=== PATIENT | male | born 1985 | race Caucasian/White ===

== ENCOUNTER → 2017-03-22 | Outpatient (CLI) | payer BC ==
--- NOTE | 2017-03-22 11:32 | ECHOS ---
STRESS ECHOCARDIOGRAM INDICATIONS: Abnormal EKG BASELINE HEART RATE: 99 BASELINE BLOOD PRESSURE: 105/55 MAXIMUM HEART RATE: 170 MAXIMUM BLOOD PRESSURE: 169/84 85% MPHR: 162 100% MPHR: 190 METS: 12.1 MAXIMUM STAGE REACHED: 4 TOTAL EXERCISE TIME: 12:00 CLINICAL INFORMATION: Baseline EKG shows sinus rhythm with nonspecific T-wave changes in the inferior leads. The patient exercised on Vladimir protocol for a total of 12 minutes achieving 13 METS, 85% of predicted maximal heart rate without chest pain or diagnostic ST-segment depression. Baseline echo shows normal left ventricular size, wall motion and systolic function. Postexercise, there is normal hyperdynamic response of all segments of myocardium noted. CONCLUSION: 1. Excellent exercise tolerance. 2. Negative stress test by EKG criteria. 3. Negative stress echo. MMMIRAL / MATIASN: [id number] /
== END | disposition home or self-care (01) ==
LOC: RADNMMAIN 09:58
PROVIDERS: ATTEND Family Medicine
DX: R94.31 Abnormal electrocardiogram [ECG] [EKG] (principal)
CPT/HCPCS: 93017; 93350

== ENCOUNTER 2021-12-09 09:14 | Day surgery (SDC) | payer BC ==
[2021-12-07 11:24] VITALS: BMI 30.2
[~2021-12-09 09:14] MED LIST: LACTATED RINGERS 1,000 ML IV SCH; LIDOCAINE 1% (10MG/ML) FOR IV START INTRADERMA PRN
[2021-12-09 10:03] VITALS: TEMP 97.3
[2021-12-09] MEDS ORDERED: PROPOFOL 10 MG/ML 20 ML VIAL IV ONE (10:58)
[2021-12-09] MEDS ORDERED: MIDAZOLAM 2 MG/2 ML VIAL ONE (10:58)
[2021-12-09] MEDS ORDERED: LIDOCAINE 2% INJ 20 MG/ML (2 ML VIAL) ONE (10:58)
[2021-12-09] MEDS ORDERED: fentaNYL (PF) 50 MCG/ML 2 ML AMP ONE (10:58)
--- NOTE | 2021-12-09 11:07 | P.PCN ---
Date of Procedure: 12/09/21 Procedure(s) Performed: BRIEF HISTORY: Patient is a 36-year-old, pleasant, male scheduled for an upper endoscopy as a part of evaluation of reflux symptoms for the last 3-4 months duration. He was initially started on Protonix 40 mg daily and is doing much better. He does complain of intermittent dysphagia to solids.. PROCEDURE PERFORMED: Esophagogastroduodenoscopy with biopsy. PREOPERATIVE DIAGNOSIS: Chronic heartburn and intermittent dysphagia to solids. IV sedation per anesthesia. PROCEDURE: After informed consent was obtained, the patient was brought into the endoscopy unit. IV sedation was administered by Anesthesia under continuous monitoring. Initially the Olympus GIF-140 video endoscope was inserted into the mouth. Esophagus intubated without any difficulty. It was gradually advanced into the stomach and duodenum and carefully examined. The bulb and the second part of the duodenum appeared normal. The scope at this time was withdrawn to the stomach, adequately insufflated with air, and upon careful examination, mucosa of the antrum, had mild gastritis and biopsies were done from this area.The body, cardia and the fundus appeared normal. The scope was then withdrawn into the esophagus. The GE junction was located at 41 cm from the incisors. It appeared slightly irregular but there was no erythema erosions or ulcerations. No evidence of Flores's esophagus. The rest of esophagus appeared normal and the patient tolerated the procedure well. IMPRESSION: 1. Minimal antral gastritis. 2. Irregular GE junction but no evidence of esophagitis or Flores's esophagus. RECOMMENDATIONS: The findings of this examination were discussed with the patient as well as his family. Follow with the biopsy results. He was advised to continue with Protonix 40 mg daily and follow antireflux measures..
[2021-12-09 11:27] VITALS: BP 119/68; PULSE 70; RESP 16
== END 2021-12-09 12:15 | disposition home or self-care (01) ==
LOC: ORWHC2ENDO 09:14
PROVIDERS: ATTEND Internal Medicine Gastroenterology
DX: K29.50 Unspecified chronic gastritis without bleeding (principal); K21.9 Gastro-esophageal reflux disease without esophagitis; Z79.899 Other long term (current) drug therapy
CPT/HCPCS: 88305; 43239; J2250; J3010; J2704; J2001